=== PATIENT | female | born 1970 | race Caucasian/White ===

== ENCOUNTER 2016-11-05 05:07 | Emergency (ER) | payer OTHER ==
--- NOTE | 2016-11-12 07:39 | ER ---
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 Was up working this evening when she reached to a wall switch and turned on the light switch when she felt like she was electrocuted and there was a large pop. She did not lose consciousness. On presentation to the ER, she is just a few minutes out from the incident and is alert, states she feels funny, but does not have any specific pain. She denies any difficulty breathing or chest pain. She is feeling a little nauseated. PAST MEDICAL HISTORY: Unremarkable. PHYSICAL EXAMINATION: See T-sheet for complete exam. There are no observable signs of any sort of lopez or injuries to her skin. LABORATORY DATA AND IMAGING: I did go ahead and get some labs, which shows she has a normal CBC, normal chemistries including potassium, creatinine, and a normal CK. An EKG was done, which reveals sinus rhythm with a rate of 76, no signs of any ST-elevation acute ID, or any other abnormalities with conduction or intervals. The patient did have an IV started, was given a liter of normal saline. She states she did develop a bit of a headache while here and she was given Toradol 30 mg IV, and [place] 1 tablet. Her headache was improved and she feels fine going home. The patient is discharged home with a diagnosis of electrocution 120 volt. She is to return to the ER for any concerning symptoms. Otherwise, follow up with the regular physician. Marvin Sharma MD/ harshal JOB #: [id number] CC: Marvin Sharma MD, Attending Physician
== END 2016-11-05 07:00 | disposition home or self-care (01) ==
LOC: ER 05:07
DX: T75.4XXA Electrocution, initial encounter (principal); R51 Headache; W86.8XXA Exposure to other electric current, initial encounter